=== PATIENT | female | born 1990 | race African-American/Black ===

== ENCOUNTER → 2017-12-16 | Outpatient (CLI) | payer OTHER | LOC: CPRE 12:04 | PROVIDERS: ATTEND Obstetrics & Gynecology | DX: Z01.818 Encounter for other preprocedural examination (principal) ==

== ENCOUNTER → 2017-12-25 | Day surgery (SDC) | payer OTHER ==
[~2017-12-25] VITALS: Ht 170.2 cm; Wt 59.7 kg
[~2017-12-25] MED LIST: *MEPERIDINE 25 MG INJ VIAL PERIprocedural Use ONLY ONE; *morphine SULFATE 8 MG/ML PERIprocedure ONLY ONE; ACETAMINOPHEN 1000 MG/100 ML 100 ML IV ONE; CHLORHEXIDINE GLUCONATE 2 % 1 PACK (2 CLOTHS) TOPICAL PRN; DEXAMETHASONE SOD PHOS 4 MG/ML VIAL IV ONE; DO NOT ADM ANY ANTICOAGULANT DRUGS PRN; GLYCOPYRROLATE 1 MG/5 ML SYRINGE IV PUSH ONE; LACTATED RINGER'S 1000 ML IV PRN; LIDOCAINE HCL 1% PF 5 ML SYRINGE OTHER ONE; METOPROLOL TARTRATE 25 MG TAB PO PRN; MIDAZOLAM HCL 2 MG/2 ML VIAL ONE; NEOSTIGMINE 5 MG/5 ML SYRINGE IV PUSH ONE; ONDANSETRON HCL 4 MG/2 ML VIAL IV ONE; ONDANSETRON HCL 4 MG/2 ML VIAL IV PUSH PRN; POVIDONE IODINE 5% (ANTISEPSIS KIT) 4 APPLICATIONS EACH NARE PRN; PROPOFOL 200 MG/20 ML AMP IV ONE; ROCURONIUM INJ 50 MG/5 ML SYRINGE IV PUSH ONE; SODIUM CHLORID 0.9% 500 ML IV PRN; ceFAZolin INJ 1,000 MG VIAL IV ONE; oxyCODONE/ACETAMINOPHEN 5 MG/325 MG TAB PO PRN
[2017-12-25 06:48] LABS: AUTOMATED NEUTROPHIL # 0.9 TH/MM3 (1.8-7.7); BASOPHIL % 1.1 % (0.0-2.0); EOSINOPHIL # 0.1 TH/MM3 (0-0.4); EOSINOPHIL % 2.1 % (0.0-4.0); HEMATOCRIT 30.3 % (35.0-46.0); HEMOGLOBIN 9.9 GM/DL (11.6-15.3); LYMPH % 51.7 % (9.0-44.0); LYMPHOCYTE # 1.4 TH/MM3 (1.0-4.8); MEAN CELL VOLUME 85.6 FL (80.0-100.0); MEAN CORPUSCULAR HGB CONC 32.7 % (32.0-36.0); MONO % 11.3 % (0.0-8.0); MONOCYTE # 0.3 TH/MM3 (0-0.9); NEUT % 33.8 % (16.0-70.0); PLATELET COUNT 343 TH/MM3 (150-450); RED BLOOD COUNT 3.54 MIL/MM3 (4.00-5.30); RED CELL DISTRIBUTION WIDTH 15.4 % (11.6-17.2); WHITE BLOOD COUNT 2.8 TH/MM3 (4.0-11.0)
[2017-12-25 08:05] LABS: BASOPHILS 3 % (0-2); LYMPHOCYTES 53 % (9-44); MONOCYTES 7 % (0-8); POLYS (SEG NEUTROPHILS) 36 % (16-70)
[2017-12-25 08:06] LABS: OVALOCYTES 1+ (NORMAL)
--- NOTE | 2017-12-25 10:25 | MP ---
cc: Aquiles Love MD DATE OF OPERATION: 12/25/2017 PREOPERATIVE DIAGNOSES: 1. Severe dysmenorrhea. 2. Menorrhagia. POSTOPERATIVE DIAGNOSES: 1. Severe dysmenorrhea. 2. Menorrhagia. 3. Massive pelvic adhesions. PROCEDURES PERFORMED: Examination under anesthesia, hysteroscopic exam, dilation and curettage of the uterus, laparoscopic exam with extensive lysis of adhesions and placement of Interceed. ANESTHESIA: General endotracheal. INDICATIONS: Intubation. SURGEON: Aquiles Love MD FINDINGS: Examination under anesthesia, the vagina was clean, the cervix was small and nulliparous without lesions. The uterus was not enlarged, but felt slightly immobile. The adnexa was negative for masses. The hysteroscope revealed a normal uterine cavity sounded to 7.5 cm. No polyps or submucous myomas were seen. D and C revealed minimal tissue. The laparoscopic exam revealed a normal uterus, normal tubes, normal ovaries. The uterus was completely obliterated by scar tissue with the endometrium and the anterior abdominal wall. There were multiple huge thick adhesions on the anterior cul-de-sac and somewhat less in the posterior cul-de-sac. In the future if she ever needs to remove the uterus, I would consider strongly a bowel prep as the posterior cul-de-sac was completely obliterated around the cervix. The tubes, however, were normal in length and caliber and the ovaries looked perfectly normal. The bowels looked normal. COMPLICATIONS: None. COUNTS: Correct. ESTIMATED BLOOD LOSS: 50 mL. FLUIDS: Crystalloids. DISPOSITION: The patient tolerated the procedure well, went to the recovery room in good condition. PROCEDURE NOTE: The patient was taken to the operating room, identified by name band and verbally, given a general anesthetic, prepped and draped in the usual sterile manner for laparoscopic surgery. A timeout was taken and we proceeded with the examination under anesthesia after the Everett catheter was inserted. The examination under anesthesia was carried out with the above findings. Then a weighted speculum was placed in the vagina. The anterior lip of the cervix was grasped with a single-tooth tenaculum. The cervix was serially dilated without difficulty. It was hard to get in that first with a little cervical stenosis perhaps, but once we had opened that up, it went fairly easily. The hysteroscope was inserted and the entire endometrial cavity and endocervical canal was closely inspected with the above findings. At this point, we took a #1 sharp curette and gently curetted the entire endometrial surface and sent it for pathologic evaluation. The Hulka clamp was then placed and attention was turned to the umbilical area. A small subumbilical incision was made and a 5 mm trocar was inserted with some difficulty because her fascia was very tough. This took a little time to do it safely. At this point, then we created pneumoperitoneum with 3 liters of CO2 and visualized the entire pelvis with the above findings. A second puncture was placed in the left side inferolateral to the umbilicus and will began taking down the adhesions. A third incision was made on the right lower quadrant and a third 5 mm trocar was placed for manipulation of tissue and placement of Interceed. We did extensive lysis of adhesions trying to avoid the urinary bladder and the ureter. These adhesions were so thick and could have been causing a lot of her pain. Once we had taken down all these adhesions anteriorly and one posteriorly, we took most of those down. The posterior cul-de-sac down by the cervix; however, was completely obliterated and the bowel was firmly adherent there, so we did not dissect in that area. The tubes were normal in length and caliber at this time. The ovaries looked normal. At this point, we decided to place some Interceed and Interceed was placed in the anterior cul-de-sac and laid down and the placement looked excellent. We left the air release after the laparoscope was removed under direct vision and the skin was repaired with 4-0 Monocryl in subcuticular fashion. I will be sending her home on some doxycycline in case this does represent a tubal infection that was never treated. R. MD TOM Galan/ROLANDA , 09:53 AM , 10:24 AM
[2017-12-25 11:24] VITALS: BP 106/72; PULSE 58; RESP 20; TEMP 98; O2SAT 100
== END | disposition home or self-care (01) ==
LOC: HSDC 05:47
PROVIDERS: ATTEND Obstetrics & Gynecology
DX: N73.6 Female pelvic peritoneal adhesions (postinfective) (principal); N94.6 Dysmenorrhea, unspecified; N92.0 Excessive and frequent menstruation with regular cycle; N71.1 Chronic inflammatory disease of uterus
CPT/HCPCS: 00840; 58558; 58660; 84703; 85007; 85027; 88305; C1765; J0131; J0690; J1100; J2175; J2250; J2270; J2405; J2710; J3010; J7120

== ENCOUNTER 2018-01-21 18:36 | Observation (INO) ==
[2018-01-21] MEDS ORDERED: Sod Chloride 0.9% Inj 1,000 ML IV.SIG ONE ×2 (19:44→22:00)
--- NOTE | 2018-01-21 20:15 | CT ---
EXAM DATE: 01/21/2018 7:55 PM EDT AGE/SEX: 27 years / Female INDICATIONS: Altered mental status. CLINICAL DATA: This is the patient's initial encounter. Patient reports that signs and symptoms have been present for 1 day and indicates a pain score of 0/10. MEDICAL/SURGICAL HISTORY: None. None. RADIATION DOSE: 56.35 CTDI (mGy) COMPARISON: No prior exams available for comparison. TECHNIQUE: CT of the head without contrast. Using automated exposure control and adjustment of the mA and/or kV according to patient size, radiation dose was kept as low as reasonably achievable to ob tain optimal diagnostic quality images. DICOM format image data is available electronically for revi ew and comparison. FINDINGS: Cerebrum: The ventricles are normal for age. No evidence of midline shift, mass lesion, hemorrhage or acute infarction. No extraaxial fluid collections are seen. Posterior Fossa: The cerebellum and brainstem are intact. The 4th ventricle is midline. The cerebe llopontine angle is unremarkable. Extracranial: The visualized portion of the orbits is intact. Skull: The calvaria is intact. No evidence of skull fracture. CONCLUSION: 1. No acute intracranial abnormality demonstrated. Electronically signed by: Braulio Cartagena MD 01/21/2018 8:14 PM EDT
--- NOTE | 2018-01-21 20:17 | ED ---
HPI General Chief complaint: Head Injury Stated complaint: head injury Time Seen by Provider: 01/21/18 19:31 Source: patient and family Mode of arrival: wheelchair Limitations: altered mental status History of Present Illness HPI narrative: 27-year-old female that presents to the ED for evaluation of head injury and possible confusion and weakness. Per patient today she has been feeling weak and confused. Per family apparently she allegedly had a syncopal episode at a store. She does not remember what happened. Per patient she has a history of syncopal episode secondary to her periods for which is being followed by Dr. Montes. Apparently she had a D&C about a month ago and they thought that she was doing better but her first period since the procedure started on Saturday and she is been having issues since. Per patient she has been having bad abdominal cramping from it. She states that her bleeding has not been as bad as before but today she has been feeling weak and tired. She also reports that she has not eaten anything today. Per patient she is taking some Gummies to help her with her "diarrhea" and this is only thing she has had for food. Unclear as to why she has not eaten anything. She denies any chest pain or shortness of breath. Family is very concerned as patient has been acting very confused and different from her usual. She usually is weak when her she has these episodes and has episodes of blackouts but not usually with confusion. She states that she has been anemic and she is needing transfusions in the past and she believes that this might be related. She does tell me that today she took Tylenol with codeine after taking her Gummies and unclear if the symptoms of confusion started after this. She apparently did have a significant fall on Saturday per family and the patient showed us a picture of blood in the tile where she allegedly fell and hit her head. This is news to the family and per patient she never got checked for this. She states that since this happened she has been having pain on a spot on her head. Related Data Home Medications Medication Instructions Recorded Confirmed No Known Home Medications 01/21/18 01/21/18 Allergies Allergy/AdvReac Type Severity Reaction Status Date / Time lactose Allergy Severe VOMITING Verified 12/25/17 06:42 No Known Drug Allergies Allergy Unknown Verified 12/25/17 06:42 Review of Systems ROS Unobtainable All other systems reviewed negative except as stated in HPI [facility] Medical History Medical History Anemia (Acute) Surgical History Surgical History History of dilatation and curettage (Acute) Social History Social History Substance History: No History of Abuse Second Hand Smoke Exposure: No Smoking Status: Never smoker How Often Do You Have a Drink Containing Alcohol: Monthly or less Recent Travel in [facility] within the Last 8 Weeks: No Recent Out of Country Travel within the Last 8 Weeks: No Immunization History Tetanus Immunization: <5 Years Hx Influenza Vaccine This Season: Yes Exam Narrative Exam Narrative: GENERAL: Well-appearing SKIN: Focused skin assessment warm/dry. HEAD: Atraumatic. Normocephalic. EYES: Pupils equal and round 4 mms reactive to light and accommodation. No scleral icterus. No injection or drainage. ENT: No nasal bleeding or discharge. Mucous membranes pink and moist. Tongue is midline. No uvula deviation. NECK: Trachea midline. No JVD. CARDIOVASCULAR: Regular rate and rhythm. No murmur appreciated. RESPIRATORY: No accessory muscle use. Clear to auscultation. Breath sounds equal bilaterally. GASTROINTESTINAL: Abdomen soft, non-tender, nondistended. Hepatic and splenic margins not palpable. MUSCULOSKELETAL: No obvious deformities. No clubbing. No cyanosis. No edema. Full range of motion of the upper and lower extremities bilately. 2+ pulses bilaterally. NEUROLOGICAL: Awake and alert. No obvious cranial nerve deficits. Motor grossly within normal limits. Normal speech. PSYCHIATRIC: Appropriate mood and affect; insight and judgment normal. External Female Exam: external appearance normal Speculum Exam - Vagina: normal appearance of the vagina and vaginal bleeding ( Cultures including GC and chlamydia and a wet prep were done. There was a mild amount of bleeding noted.) Speculum Exam - Cervix: normal appearance of the cervix, closed cervix and nontender Bimanual Exam- Vagina & Uterus: normal bimanual exam Bimanual Exam- Adnexa, other: no adnexal masses Course Initial Documented Vital Signs Temperature 100.4 F H 01/21/18 18:43 Pulse Rate 113 H 01/21/18 18:43 Respiratory Rate 18 01/21/18 18:43 Blood Pressure 105/70 01/21/18 18:43 Pulse Oximetry 98 01/21/18 18:43 Last Documented Vital Signs Temperature 100.4 F H 01/21/18 18:43 Pulse Rate 87 01/21/18 18:59 Respiratory Rate 18 01/21/18 18:59 Blood Pressure 109/74 01/21/18 18:59 Pulse Oximetry 100 01/21/18 18:59 Medical Decision Making ALISA Attestation ALISA supervised visit: Yes Attestation: I, Dr. Cardenas, have reviewed the advance practice practitioner's documentation and am in agreement, met with the patient face to face, made the diagnosis, and the medical decision making was done by me. The patient was initially evaluated by . Please see their complete history and physical. *My assessment and Findings: The patient presents with During the course of the patient's emergency department visit, the patient's history, examination, and differential diagnosis were reviewed with the patient. The patient was placed on a ship harbor pilot with oximetry and frequent blood pressure monitoring. The patient had IV access obtained and blood work sent for analysis. The patient was initially provided normal saline as an IV fluid bolus. The patient's laboratory studies were reviewed and remarkable for a white count of 4.7, hemoglobin is 9.8 which is similar to her last hemoglobin, monocytosis of 9.3, platelets are 332, PT 10.8, PTT 22.2, CMP is remarkable for glucose of 107, potassium 3.2 which will be supplemented in her IV fluids by the admitting physician, chloride 108, BUN 4, AST is 65, ALT 41, bedside test was negative, troponin I less than 0.02, lactic acid was elevated at 3.4 and will be repeated per sepsis protocol. Due to the concern of a possible underlying abdominal infection and sepsis, Zosyn 3.375 g was administered IV, blood cultures x2 were drawn. Urinalysis showed 127 are all blood few mucus which is likely contaminant related to her vaginal bleeding. Radiology studies were reviewed and remarkable for A CT scan of the brain showed no acute abnormality, CT scan of the abdomen and pelvis showed nonspecific heterogeneity and mild enlargement of the uterus, no well-defined mass, no active bleeding seen, small follicles of the right ovary, trace free fluid, nothing organized or drainable, pneumothorax is partially seen in the visualized right lung base, etiology is uncertain. The patient was again reexamined after the pneumothorax was noted and the patient has equal breath sounds bilaterally. The patient's O2 saturation on room air is 98-99%. The patient denies having any chest pain, chest pressure, or shortness of breath currently. A CT scan of the chest was ordered to further evaluate. CT scan of the chest reveals a small right-sided pneumothorax that measures at maximum 1 cm at the apex, no associated displaced rib fractures or definite etiology identified. At this time, the patient has no respiratory complaints and the patient will be observed on the monitor, placed on 2 L nasal cannula O2. A repeat chest x-ray will be done in the morning to reassess any need for chest tube placement, however it does not appear to be necessary at this time. A pelvic examination was done by me that that showed a mild amount of vaginal bleeding. No other discharge, however cultures were collected. No cervical motion tenderness. The patient's case including history, pertinent physical examination findings, and laboratory studies were discussed with Dr. Iverson. It was agreed that the patient would be admitted to the [facility] hospitalist service. The patient's results were discussed with the patient, including the plan of care. I explained that further testing and/ or monitoring is indicated based on the patient's history, examination, and/ or laboratory findings. Therefore, I recommended admission for additional evaluation. The patient expressed understanding and was agreeable with this plan. The patient was admitted to the hospital in stable condition and sent to a bed under the care of the [facility] hospitalist. [facility] Narrative Medical decision making narrative: 19-year-old female that presents to the ED for evaluation of syncope and confusion. Patient was properly examined and was found to have signs and symptoms of unclear etiology. She does appear to be dry on exam and somewhat confused. She was trying to show me the picture of some blood on the tile from where she allegedly fell on Saturday and she had a lot of difficulty keeping her phone on her hand and needed to use both hands to keep her follow her hand. Per family she is more confused but she does answer questions appropriately. She does allegedly has a history of anemia as well as syncope-like events. At this time labs and imaging were ordered. Patient will start IV fluids. Labs and imaging showed elevated lactic acid as well as moderate to small pneumothorax. Patient did not complain at all of SOB. CT scan ordered due to possibility of traumatic etiology. Will sign out patient to my attending pending dispo and plan pending CT scan. Differential Diagnosis Differential Diagnosis: Syncope versus altered mental status versus sepsis versus ACS versus dehydration versus anemia Medical Records Medical records reviewed: Yes I reviewed the patient's medical records. Lab Data Lab results reviewed: Yes I reviewed the patient's lab results. Lab results narrative: lactic acid in the 3s troponin and CKMB negative Result diagrams: 01/21/18 20:51 01/21/18 20:51 Lab Results 01/21/18 01/21/18 01/21/18 Range/Units 20:48 20:51 20:51 WBC 4.7 (4.0-11.0) th/mm3 RBC 3.67 L (4.00-5.30) mil/mm3 Hgb 9.8 L (11.6-15.3) gm/dL Hct 31.1 L (35.0-46.0) % MCV 84.8 (80.0-100.0) fL MCH 26.7 L (27.0-34.0) pg MCHC 31.5 L (32.0-36.0) % RDW 15.4 (11.6-17.2) % Plt Count 332 (150-450) th/mm3 MPV 7.7 (7.0-11.0) fL Neut % (Auto) 57.5 (16.0-70.0) % Lymph % (Auto) 32.3 (9.0-44.0) % [place] % (Auto) 9.3 H (0.0-8.0) % Eos % (Auto) 0.3 (0.0-4.0) % Baso % (Auto) 0.6 (0.0-2.0) % Neut # (Auto) 2.7 (1.8-7.7) th/mm3 Lymph # (Auto) 1.5 (1.0-4.8) th/mm3 [place] # (Auto) 0.4 (0.0-0.9) th/mm3 Eos # (Auto) 0.0 (0.0-0.4) th/mm3 Baso # (Auto) 0.0 (0.0-0.2) th/mm3 WBC Differential . Differential Comment Auto diff final PT 10.8 (9.8-11.6) sec INR 1.1 Ratio APTT 22.2 L (24.3-30.1) sec Sodium (136-145) meq/L Potassium (3.5-5.1) meq/L Chloride (98-107) meq/L Carbon Dioxide (21.0-32.0) meq/L Anion Gap (5-15) meq/L BUN (7-18) mg/dL Creatinine (0.50-1.00) mg/dL Estimated GFR (>89) mL/min Random Glucose (74-106) mg/dL Lactic Acid 3.6 H (0.4-2.0) mmol/L Calcium (8.5-10.1) mg/dL Total Bilirubin (0.2-1.0) mg/dL AST (15-37) U/L ALT (10-53) U/L Alkaline Phosphatase (45-117) U/L Total Creatine Kinase (26-192) U/L Troponin I (0.02-0.05) ng/mL Total Protein (6.4-8.2) g/dL Albumin (3.4-5.0) g/dL Urine Color (Yellw/Straw) Urine Clarity (Clear) Urine pH (5.0-8.5) Ur Specific [place] (1.002-1.035) Urine Protein (Neg-Trace) mg/dL Urine Glucose (UA) (Negative) mg/dL Urine Ketones (Negative) mg/dL Urine Occult Blood (Negative) Urine Nitrate (Negative) Urine Bilirubin (Negative) Urine Urobilinogen (Less than 2) mg/dL Ur Leukocyte Esterase (Negative) Urine RBC (0-3) /hpf Urine WBC (0-5) /hpf Ur Squamous Epith Cells (0-5) /hpf Urine Mucus (Occasional) /lpf Micro UA Comment Urine Culture Comments 01/21/18 01/21/18 01/21/18 Range/Units 20:51 20:52 23:48 WBC (4.0-11.0) th/mm3 RBC (4.00-5.30) mil/mm3 Hgb (11.6-15.3) gm/dL Hct (35.0-46.0) % MCV (80.0-100.0) fL MCH (27.0-34.0) pg MCHC (32.0-36.0) % RDW (11.6-17.2) % Plt Count (150-450) th/mm3 MPV (7.0-11.0) fL Neut % (Auto) (16.0-70.0) % Lymph % (Auto) (9.0-44.0) % [place] % (Auto) (0.0-8.0) % Eos % (Auto) (0.0-4.0) % Baso % (Auto) (0.0-2.0) % Neut # (Auto) (1.8-7.7) th/mm3 Lymph # (Auto) (1.0-4.8) th/mm3 [place] # (Auto) (0.0-0.9) th/mm3 Eos # (Auto) (0.0-0.4) th/mm3 Baso # (Auto) (0.0-0.2) th/mm3 WBC Differential Differential Comment PT (9.8-11.6) sec INR Ratio APTT (24.3-30.1) sec Sodium 143 (136-145) meq/L Potassium 3.2 L (3.5-5.1) meq/L Chloride 108 H (98-107) meq/L Carbon Dioxide 22.1 (21.0-32.0) meq/L Anion Gap 13 (5-15) meq/L BUN 4 L (7-18) mg/dL Creatinine 0.73 (0.50-1.00) mg/dL Estimated GFR Greater than 89 (>89) mL/min Random Glucose 107 H (74-106) mg/dL Lactic Acid 3.4 H (0.4-2.0) mmol/L Calcium 8.9 (8.5-10.1) mg/dL Total Bilirubin 0.3 (0.2-1.0) mg/dL AST 65 H (15-37) U/L ALT 41 (10-53) U/L Alkaline Phosphatase 60 (45-117) U/L Total Creatine Kinase 85 (26-192) U/L Troponin I Less than 0.02 L (0.02-0.05) ng/mL Total Protein 7.2 (6.4-8.2) g/dL Albumin 3.7 (3.4-5.0) g/dL Urine Color Straw (Yellw/Straw) Urine Clarity Clear (Clear) Urine pH 6.0 (5.0-8.5) Ur Specific [place] 1.006 (1.002-1.035) Urine Protein Negative (Neg-Trace) mg/dL Urine Glucose (UA) Negative (Negative) mg/dL Urine Ketones Negative (Negative) mg/dL Urine Occult Blood Large H (Negative) Urine Nitrate Negative (Negative) Urine Bilirubin Negative (Negative) Urine Urobilinogen Less than 2 (Less than 2) mg/dL Ur Leukocyte Esterase Negative (Negative) Urine RBC 127 H (0-3) /hpf Urine WBC 2 (0-5) /hpf Ur Squamous Epith Cells 1 (0-5) /hpf Urine Mucus Few H (Occasional) /lpf Micro UA Comment Culture not ind Urine Culture Comments Culture not ind Imaging Data Attestation: I personally reviewed and interpreted this imaging study as follows : Radiologist's impression: ITS Impressions Head CT 01/21/18 19:42 CONCLUSION: 1. No acute intracranial abnormality demonstrated. Abdomen/Pelvis CT 01/21/18 22:00 CONCLUSION: 1. Nonspecific heterogeneity and mild enlargement of the uterus. No well- defined mass. No active bleeding seen. 2. Small follicles of the right ovary. 3. Trace free fluid. Nothing organized or drainable seen. 4. A pneumothorax is partially seen in the visualized right lung base. Etiology is uncertain. Chest CT 01/21/18 22:43 CONCLUSION: 1. Small right-sided pneumothorax measuring up to 1 cm at the apex. 2. No associated displaced rib fractures or definite etiology identified. Discharge Plan Discharge Disposition Patient Disposition: 30 Still Patient Discharge Details Diagnosis: Dysmenorrhea, Abdominal pain, Dehydration, Pneumothorax Physicians Team ED Provider: Aiyana Cardenas ED Midlevel Provider: José Miguel Paulson Primary Care Provider: Vince Sanches Attending Provider: Landry Jeffers Discharge Interventions Interventions: Vital Signs Last Done: 01/21/18 18:59 Status ED Status: Admitted Observation Patient
[2018-01-21] MEDS ORDERED: Acetaminophen 325 MG Tablet PO ONE (21:15)
[2018-01-21 21:28] LABS: Baso % (Auto) 0.6 % (0.0-2.0); Eos % (Auto) 0.3 % (0.0-4.0); Hematocrit 31.1 % (35.0-46.0); Hemoglobin 9.8 gm/dL (11.6-15.3); Lymph # (Auto) 1.5 th/mm3 (1.0-4.8); Lymph % (Auto) 32.3 % (9.0-44.0); Mean Corpuscular HGB Conc 31.5 % (32.0-36.0); Mean Corpuscular Hemoglobin 26.7 pg (27.0-34.0); Mean Corpuscular Volume 84.8 fL (80.0-100.0); Mean Platelet Volume 7.7 fL (7.0-11.0); Mono # (Auto) 0.4 th/mm3 (0.0-0.9); Mono % (Auto) 9.3 % (0.0-8.0); Neut # (Auto) 2.7 th/mm3 (1.8-7.7); Neut % (Auto) 57.5 % (16.0-70.0); Platelet Count 332 th/mm3 (150-450); Red Blood Count 3.67 mil/mm3 (4.00-5.30); Red Cell Distribution Width 15.4 % (11.6-17.2); White Blood Count 4.7 th/mm3 (4.0-11.0)
[2018-01-21 21:33] LABS: Activated Partial Thrombo Time 22.2 sec (24.3-30.1); INR 1.1 Ratio; Prothrombin Time 10.8 sec (9.8-11.6)
[2018-01-21 21:40] LABS: Bilirubin,Urine Negative (Negative); Clarity,Urine Clear (Clear); Color,Urine Straw (Yellw/Straw); Glucose,Urine (UA) Negative (Negative); Leukocyte Esterase,Urine Negative (Negative); Mucus,Urine Few /lpf (Occasional); Nitrite,Urine Negative (Negative); Specific Gravity,Urine 1.006 (1.002-1.035); Squamous Epithelial Cell,Urine 1 /hpf (0-5)
[2018-01-21 21:43] LABS: Albumin 3.7 g/dL (3.4-5.0); Anion Gap 13 meq/L (5-15); Aspartate Aminotransferase 65 U/L (15-37); Blood Urea Nitrogen 4 mg/dL (7-18); Calcium 8.9 mg/dL (8.5-10.1); Carbon Dioxide 22.1 meq/L (21.0-32.0); Chloride 108 meq/L (98-107); Glomerular Filtration Rate Greater Than 89 mL/min (>89); Glucose,Random 107 mg/dL (74-106); Potassium 3.2 meq/L (3.5-5.1); Sodium 143 meq/L (136-145)
[2018-01-21 21:45] LABS: Alanine Aminotransferase 41 U/L (10-53); Alkaline Phosphatase 60 U/L (45-117); Total Protein 7.2 g/dL (6.4-8.2)
[2018-01-21 21:50] LABS: Creatine Kinase 85 U/L (26-192)
--- NOTE | 2018-01-21 22:34 | CT ---
EXAM DATE: 01/21/2018 10:23 PM EDT AGE/SEX: 27 years / Female INDICATIONS: Low Abdomen pain post D&C. CLINICAL DATA: This is the patient's initial encounter. Patient reports that signs and symptoms have been present for 1 day and indicates a pain score of 5/10. MEDICAL/SURGICAL HISTORY: None. None. ORAL CONTRAST: No oral contrast ingested. RADIATION DOSE: 5.25 CTDI (mGy) COMPARISON: No prior exams available for comparison. TECHNIQUE: Multiple contiguous axial images were obtained through the abdomen and pelvis following b olus infusion of 95 ml Omnipaque 350 (iohexol) nonionic water-soluble contrast as a single exam dos e. No oral contrast ingested. Using automated exposure control and adjustment of the mA and/or kV ac cording to patient size, radiation dose was kept as low as reasonably achievable to obtain optimal di agnostic quality images. DICOM format image data is available electronically for review and comparis on. FINDINGS: Lower Lungs: There is a small to moderate pneumothorax seen of the visualized right lung base. Liver: The liver has a homogeneous density without space-occupying lesion. There is no dilation of th e biliary tree. Spleen: Homogeneous density without enlargement. Pancreas: Unremarkable without mass or calcification. Kidneys: Normal in size and shape. No evidence of mass or hydronephrosis. Adrenal Glands: Unremarkable. Aorta: The aorta and proximal iliac vessels are grossly unremarkable without aneurysmal dilation. Bowel/Mesentery: The bowel loops are grossly unremarkable. The cecum and sigmoid colon have a normal configuration. Abdominal Wall: Intact. Retroperitoneum: No evidence of adenopathy in the retrocrural, para-aortic, or deep pelvic regions. Bladder: Contours are smooth. Reproductive Organs: Enlarged and heterogeneous uterus. No well-defined mass. No active bleeding see n. A collection of very small cysts/follicles suspected of the right ovary. Trace free fluid in the p elvic cavity. Nothing organized or drainable. Inguinal: The inguinal region is unremarkable without evidence of adenopathy. Bony Structures: Unremarkable. Post Contrast: No abnormal areas of enhancement seen. CONCLUSION: 1. Nonspecific heterogeneity and mild enlargement of the uterus. No well-defined mass. No active ble eding seen. 2. Small follicles of the right ovary. 3. Trace free fluid. Nothing organized or drainable seen. 4. A pneumothorax is partially seen in the visualized right lung base. Etiology is uncertain. Electronically signed by: Braulio Cartagena MD 01/21/2018 10:33 PM EDT
--- NOTE | 2018-01-21 23:37 | CT ---
EXAM DATE: 01/21/2018 11:04 PM EDT AGE/SEX: 27 years / Female INDICATIONS: Trauma; fall today, abnormal abdomen ct. CLINICAL DATA: This is the patient's initial encounter. Patient reports that signs and symptoms have been present for 1 day and indicates a pain score of 4/10. MEDICAL/SURGICAL HISTORY: None. None. RADIATION DOSE: 3.49 CTDI (mGy) COMPARISON: No prior exams available for comparison. TECHNIQUE: Multiple contiguous axial images were obtained through the chest without contrast. Image s were obtained in suspended respiration using multiple row detector helical technique. Using automa yadira exposure control and adjustment of the mA and/or kV according to patient size, radiation dose was kept as low as reasonably achievable to obtain optimal diagnostic quality images. DICOM format imag e data is available electronically for review and comparison. FINDINGS: Lung: Subtle focal groundglass opacities in the anterior right upper lobe. Pleura: There is a small right-sided pneumothorax measuring up to 1 cm at the apex. No evidence for mediastinal shift. No pleural effusion. Mediastinum: Heart is grossly unremarkable without significant pericardial effusion. No gross be slade tral adenopathy. Osseous Structures: Osseous structures appear intact without acute fracture. Specifically, no signifi cant right-sided rib fractures. Soft Tissues: Soft tissues are unremarkable. No significant axillary adenopathy. Other: Visulaized upper abdomen is unremarkable. CONCLUSION: 1. Small right-sided pneumothorax measuring up to 1 cm at the apex. 2. No associated displaced rib fractures or definite etiology identified. Electronically signed by: Pratik Reynoso MD 01/21/2018 11:35 PM EDT
[2018-01-22] MEDS ORDERED: Piperacil/Tazo 3.375 GM Premix 50 ML IV.SIG ONE (00:14)
--- NOTE | 2018-01-22 05:36 | ECG ---
Date Performed: 01/21/2018 Time Performed: 20:28:41 PTAGE: 27 years EKG: Sinus rhythm NORMAL ECG NO PREVIOUS TRACING DOCTOR: Regis Kolb Interpretating Date/Time 01/22/2018 05:35:46
[2018-01-22 07:27] LABS: Baso % (Auto) 0.6 % (0.0-2.0); Eos # (Auto) 0.1 th/mm3 (0.0-0.4); Eos % (Auto) 1.8 % (0.0-4.0); Hematocrit 26.7 % (35.0-46.0); Hemoglobin 8.7 gm/dL (11.6-15.3); Lymph # (Auto) 2.3 th/mm3 (1.0-4.8); Mean Corpuscular HGB Conc 32.6 % (32.0-36.0); Mean Corpuscular Hemoglobin 27.5 pg (27.0-34.0); Mean Corpuscular Volume 84.5 fL (80.0-100.0); Mean Platelet Volume 7.3 fL (7.0-11.0); Mono # (Auto) 0.4 th/mm3 (0.0-0.9); Neut # (Auto) 1.6 th/mm3 (1.8-7.7); Neut % (Auto) 36.6 % (16.0-70.0); Platelet Count 269 th/mm3 (150-450); Red Blood Count 3.15 mil/mm3 (4.00-5.30); Red Cell Distribution Width 14.9 % (11.6-17.2); White Blood Count 4.4 th/mm3 (4.0-11.0)
[2018-01-22 07:53] LABS: Anion Gap 6 meq/L (5-15); Blood Urea Nitrogen 2 mg/dL (7-18); Calcium 7.8 mg/dL (8.5-10.1); Carbon Dioxide 26.9 meq/L (21.0-32.0); Chloride 111 meq/L (98-107); Glomerular Filtration Rate Greater Than 89 mL/min (>89); Glucose,Random 90 mg/dL (74-106); Potassium 3.5 meq/L (3.5-5.1); Sodium 144 meq/L (136-145)
--- NOTE | 2018-01-22 10:21 | P.HPIM ---
History of Present Illness Primary Care Physician: Vince Sanches Chief Complaint: Syncope, AMS History of Present Illness: Ms. Dunham is a 27 y/o AAF with anemia, dysmenorrhea, and hx of syncopal episodes who presented to the ED at [facility] [facility] on 01/21/18 evaluation of presyncope, confusion and weakness. Per the patient and her mother at the bedside, the pt has had issues with syncopal episodes intermittently for several years. She has had outpt workup with Cardiology and Neurology in the past without a clear answer for the syncopal episodes. Over the last several months she has had some issues with memory problems and has recently been evaluated by Neurology, Dr. Idalia Gruber, as an outpt. She has recently had Holter monitor (09/20/17) with underlying NSR, no ventricular ectopy, supraventricular or bradycardic activity, EEG (09/17/17) which was normal, no focal, diffuse or general abnormalities noted, Carotid US (09/10/17) which noted normal bilateral carotid arteries, and MRI Brain w/o contrast (09/09/17) which was unremarkable. Several years ago she had outpt workup with Echo (2014) normal EF, trace MR/TR and TTT ( 2014) which was negative. Per the patient she has a history of syncopal episode secondary to her periods for which is being followed by Dr. Montes and per PCP has documented episodes of presumed vasovagal syncope in the past. She had a laparoscopy and D&C on 12/25/17 and the patient thought that she was doing better but her first period since the procedure started on 01/18/18, and she is been having issues since that time. On 01/19/18, the pt reported a syncopal episode that began with feeling nauseated and she went to the bathroom and while sitting on the commode she passed out and reportedly hit her forehead on the bathroom counter when she fell. There was no reported loss of bowel or bladder function when she woke up. She was not particularly confused or disoriented after this episode. She states that this is not unusual to occur while she is on her period. Pt was brought to the ED on 01/21 with reported increased confusion, disequilibrium and she had a reported weakness and near syncope in a store earlier that day. Pt reports that she went to the grocery store yesterday morning and after walking in she felt somewhat dizzy and felt like she may pass out. She was using the cart to help hold her up but then she fell backwards onto her buttock, never hitting her head. She was able to recover and finished her shopping yesterday. After returning home her mother felt that the pt was increasingly confused and seemed to have a difficult time ambulating around in the house. Around 5pm yesterday evening the pt was reportedly slurring her words and this prompted her evaluation in the ED. Her labs at admission noted Hgb 9.8/Hct 31.1. She states that she has been anemic for some time and in the past but she has not required transfusions. She does tell me that yesterday she took Tylenol with codeine after taking her fiber gummies and unclear if the symptoms of confusion started after this. Head CT (01/21/18) with no acute intracranial abnormality demonstrated. CT Abdomen/Pelvis (01/21/18) with noted nonspecific heterogeneity and mild enlargement of the uterus, no well-defined mass, no active bleeding seen, small follicles of the right ovary, and trace free fluid. The CT also noted a pneumothorax is partially seen in the visualized right lung base. Chest CT (01/21) which revealed a small right-sided pneumothorax measuring up to 1 cm at the apex, but no associated displaced rib fractures or definite etiology identified. She has had some intermittent SOB and chest pressure like sensation but she relates this to when she has her periods. review of her outpt labs notes her blood count to typically be between 11-9. Most recent outpt Hgb was 9.7 in 10/2017. She does not report that she has had her blood count checked during or right after her periods to see how low her blood count gets. - Diagnosis (1) Syncopal episodes (2) Confusion (3) Dysmenorrhea (4) Abdominal pain (5) Pneumothorax Review of Systems Constitutional: Reports headache(s), Reports weakness, Denies chills, Denies fatigue, Denies fever(s), Denies malaise, Denies night sweats Eyes: Denies blind spots, Denies blurry vision, Denies change in vision, Denies double vision, Denies floaters, Denies loss of vision Ears, Nose, Mouth, and Throat: Reports dizziness, Denies abnormal hearing, Denies difficulty swallowing, Denies hearing loss, Denies post nasal drip, Denies ringing in the ears, Denies sore throat Cardiovascular: Reports fainting, Reports lightheadedness, Denies chest pain, Denies chest pain at rest, Denies excessive sweating, Denies generalized swelling, Denies irregular heart rhythm, Denies leg pain with activity, Denies rapid, pounding, or irregular heartbeat, Denies shortness of breath Respiratory: Denies cough, Denies shortness of breath, Denies wheezing Gastrointestinal: Reports abdominal pain, Reports bloating, Reports nausea, Denies change in bowel habits, Denies change in stools, Denies coffee ground vomit, Denies constipation, Denies heartburn, Denies incontinent of stools, Denies loose stools, Denies vomiting, Denies vomiting blood Genitourinary: Reports abnormal periods, Reports abnormal vaginal bleeding, Denies urinary incontinence, Denies urinary urgency, Denies vaginal discharge Musculoskeletal: Reports abnormal walking, Denies muscle weakness, Denies numbness Skin/Breast: Denies excessive hair growth, Denies hair loss, Denies unusual bruising Neurologic: Reports abnormal speech, Reports abnormal walking, Reports confusion , Reports dizziness, Reports fainting, Reports memory loss, Reports unsteadiness , Denies localized weakness, Denies numbness, Denies weakness Psychiatric: Reports abnormal sleep pattern, Denies thoughts of hurting/killing others, Denies thoughts of hurting/killing yourself Endocrine: Denies heat intolerance, Denies rapid, pounding, or irregular heartbeat Hematologic/Lymphatic: Denies easy bleeding, Denies easy bruising PMFSH - History History Provided By: Patient - Medical History Medical History: Medical History (Last Updated 01/22/18 @ 10:18 by MENDEZ Knight) Syncopal episodes (Acute) Anemia - Surgical History Surgical History: Surgical History (Last Updated 01/22/18 @ 10:18 by MENDEZ Knight) History of dilatation and curettage History of laparoscopy - Family History Family History: Family History (Last Updated 01/22/18 @ 10:19 by MENDEZ Knight) Mother Syncopal episodes - Tobacco History Second Hand Smoke Exposure: No Tobacco Use In Past 30 Days: No Smoking Status: Never smoker - Alcohol History How Often Do You Have a Drink Containing Alcohol: Monthly or less - Substance Use History Substance History: No History of Abuse - Travel History Recent Travel in the [place] Within the Last 8 Weeks: No Recent Travel Out of the Country Within the Last 8 Weeks: No - Immunization History Tetanus Immunization: <5 Years Hx Influenza Vaccine This Season: Yes Medications and Allergies Allergies Allergy/AdvReac Type Severity Reaction Status Date / Time lactose Allergy Severe VOMITING Verified 12/25/17 06:42 No Known Drug Allergies Allergy Unknown Verified 12/25/17 06:42 Home Medications Medication Instructions Recorded Confirmed Type No Known Home Medications 01/21/18 01/21/18 History Active Medications: Active Medications Potassium Chloride/Sodium Chloride (Ns + Kcl 20 Meq Inj) 1,000 mls @ 84 mls/hr IV.CONT .[id number] [facility] Last Admin: 01/22/18 02:26 Dose: 84 mls/hr Sodium Chloride (Ns Flush) 2 ml IV.FLUSH PRN PRN PRN Reason: FLUSH AFTER USING IV ACCESS Sodium Chloride (Ns Flush) 2 ml IV.FLUSH PRN PRN PRN Reason: FLUSH AFTER USING IV ACCESS Tramadol HCl (Ultram) 50 mg PO Q6H PRN PRN Reason: Acute Pain Last Admin: 01/22/18 01:00 Dose: 50 mg Exam Vital signs: Vital Signs 01/21/18 18:43 01/21/18 18:59 01/22/18 03:26 Temperature 100.4 F H Pulse Rate 113 H 87 73 Respiratory Rate 18 18 18 Blood Pressure 105/70 109/74 105/58 L Pulse Oximetry 98 100 100 01/22/18 06:47 Temperature Pulse Rate 71 Respiratory Rate 18 Blood Pressure 101/56 L Pulse Oximetry 100 Intake & Output 01/21/18 01/22/18 01/22/18 18:59 06:59 18:59 Intake Total 2049 Balance 2049 Weight 58.967 kg Intake: IV 2049 Zosyn 3.375 GM Premix 50 ML @ 50 / 50 100 mls/hr IV.SIG ONCE ONE Rx#: [id number] NS Inj 1,000 ML @ Wide Open IV. 1999 SIG BOLUS ONE Rx#:[id number] Narrative: GENERAL: NAD, AAOx3 SKIN: Warm and dry. HEENT: Atraumatic. Normocephalic. Pupils equal and round. No scleral icterus. No injection or drainage. No nasal bleeding or discharge. Mucous membranes pink and moist. NECK: Trachea midline. No JVD. CARDIOVASCULAR: Regular rate and rhythm. RESPIRATORY: No accessory muscle use. Clear to auscultation. Breath sounds equal bilaterally. GASTROINTESTINAL: Abdomen soft, non-tender, nondistended. Hepatic and splenic margins not palpable. MUSCULOSKELETAL: Extremities without clubbing, cyanosis, or edema. No obvious deformities. NEUROLOGICAL: Awake and alert. No obvious cranial nerve deficits. Motor grossly within normal limits. Five out of 5 muscle strength in the arms and legs. Normal speech. PSYCHIATRIC: Appropriate mood and affect; insight and judgment normal. Results - Labs CBC & Chem 7: 01/23/18 13:10 01/23/18 13:10 Labs: Short CBC 01/21/18 01/22/18 Range/Units 20:51 07:09 WBC 4.7 4.4 (4.0-11.0) th/mm3 Hgb 9.8 L 8.7 L (11.6-15.3) gm/dL Hct 31.1 L 26.7 L (35.0-46.0) % Plt Count 332 269 (150-450) th/mm3 BMP 01/21/18 01/22/18 20:51 07:09 Sodium 143 144 Potassium 3.2 L 3.5 Chloride 108 H 111 H Carbon Dioxide 22.1 26.9 BUN 4 L 2 L Creatinine 0.73 0.61 Calcium 8.9 7.8 L D Cardiac Enzymes 01/21/18 Range/Units 20:51 Total Creatine Kinase 85 (26-192) U/L Troponin I Less than 0.02 L (0.02-0.05) ng/mL Liver Function 01/21/18 Range/Units 20:51 Total Bilirubin 0.3 (0.2-1.0) mg/dL AST 65 H (15-37) U/L ALT 41 (10-53) U/L Alkaline Phosphatase 60 (45-117) U/L Albumin 3.7 (3.4-5.0) g/dL Urine 01/21/18 Range/Units 20:52 Urine Color Straw (Yellw/Straw) Urine Clarity Clear (Clear) Urine pH 6.0 (5.0-8.5) Ur Specific [place] 1.006 (1.002-1.035) Urine Protein Negative (Neg-Trace) mg/dL Urine Glucose (UA) Negative (Negative) mg/dL - Imaging Impressions Head CT 01/21/18 19:42 CONCLUSION: 1. No acute intracranial abnormality demonstrated. Abdomen/Pelvis CT 01/21/18 22:00 CONCLUSION: 1. Nonspecific heterogeneity and mild enlargement of the uterus. No well- defined mass. No active bleeding seen. 2. Small follicles of the right ovary. 3. Trace free fluid. Nothing organized or drainable seen. 4. A pneumothorax is partially seen in the visualized right lung base. Etiology is uncertain. Chest CT 01/21/18 22:43 CONCLUSION: 1. Small right-sided pneumothorax measuring up to 1 cm at the apex. 2. No associated displaced rib fractures or definite etiology identified. Caprini VTE Risk Assessment Caprini VTE Risk Assessment: No/Low Risk (score <= 1) Caprini Risk Assessment Model: Point Value = 1 Point Value = 2 Point Value = 3 Point Value = 5 Age 41-60 Minor surgery BMI > 25 kg/m2 Swollen legs Varicose veins or History of unexplained or recurrent spontaneous Oral contraceptives or hormone replacement Sepsis (< 1 month) Serious lung disease, including pneumonia (< 1 month) Abnormal pulmonary function Acute myocardial infarction Congestive heart failure (< 1 month) History of inflammatory bowel disease Medical patient at bed rest Age 61-74 Arthroscopic surgery Major open surgery (> 45 min) Laparoscopic surgery (> 45 min) Malignancy Confined to bed (> 72 hours) Immobilizing plaster cast Central venous access Age >= 75 History of VTE Family history of VTE Factor V Leiden Prothrombin [id number] Lupus anticoagulant Anticardiolipin antibodies Elevated serum homocysteine Heparin-induced thrombocytopenia Other congenital or acquired thrombophilia Stroke (< 1 month) Elective arthroplasty Hip, pelvis, or leg fracture Acute spinal cord injury (< 1 month) Prophylaxis Regimen: Total Risk Factor Score Risk Level Prophylaxis Regimen 0-1 Low Early ambulation 2 Moderate Order ONE of the following: *Sequential Compression Device (SCD) *Heparin 5000 units SQ BID 3-4 Higher Order ONE of the following medications: *Heparin 5000 units SQ TID *Enoxaparin/Lovenox 40 mg SQ daily (WT < 150 kg, CrCl > 30 mL/min) *Enoxaparin/Lovenox 30 mg SQ daily (WT < 150 kg, CrCl > 10-29 mL/min) *Enoxaparin/Lovenox 30 mg SQ BID (WT < 150 kg, CrCl > 30 mL/min) AND/OR *Sequential Compression Device (SCD) 5 or more Highest Order ONE of the following medications: *Heparin 5000 units SQ TID (Preferred with Epidurals) *Enoxaparin/Lovenox 40 mg SQ daily (WT < 150 kg, CrCl > 30 mL/min) *Enoxaparin/Lovenox 30 mg SQ daily (WT < 150 kg, CrCl > 10-29 mL/min) *Enoxaparin/Lovenox 30 mg SQ BID (WT < 150 kg, CrCl > 30 mL/min) AND *Sequential Compression Device (SCD) Assessment and Plan - Assessment (1) Syncopal episodes Code(s): R55 - Syncope and collapse Status: Acute Plan: Syncopal episodes Confusion Slurred speech - Pt is a 27 y/o AAF with anemia, dysmenorrhea, and hx of syncopal episodes who presented to the ED at [facility] [place] [facility] on 01/21/18 evaluation syncopal episodes and possible confusion and weakness. The pt has reportedly had issues with syncopal episodes intermittently for several years. She has had outpt workup with Cardiology and Neurology in the past without a clear answer for the syncopal episodes. Per the patient she has a history of syncopal episode secondary to her periods for which is being followed by Dr. Montes and per PCP has documented episodes of presumed vasovagal syncope in the past. She recently had a laparoscopy and D&C on 12/25/17 and the patient thought that she was doing better but her first period since the procedure started on 01/18/18, and she is been having issues since that time. - On 01/19/18, the pt reported a syncopal episode that began with feeling nauseated and she went to the bathroom and while sitting on the commode she passed out and reportedly hit her forehead on the bathroom counter when she fell. There was no reported loss of bowel or bladder function when she woke up. She was not particularly confused or disoriented after this episode. - Pt was brought to the ED on 01/21/18 with reported increased confusion, slurred speech, disequilibrium and she had a reported weakness and near syncope in a store earlier that day. - Labs at admission noted Hgb 9.8/Hct 31.1. Repeat labs on 01/22 with Hgb 8.7/ hct 26.7. - Head CT (01/21/18) --> no acute intracranial abnormality demonstrated. - Over the last several months she has had some issues with memory problems and has recently been evaluated by Neurology, Dr. Idalia Gruber, outpt workup included: - Holter monitor (09/20/17) with underlying NSR, no ventricular ectopy, supraventricular or bradycardic activity - EEG (09/17/17) which was normal, no focal, diffuse or general abnormalities noted - Carotid US (09/10/17) which noted normal bilateral carotid arteries - MRI Brain w/o contrast (09/09/17) which was unremarkable. - Several years ago she had outpt workup with Echo (2014) normal EF, trace MR/ TR and TTT (2014) which was negative. - The etiology for her symptoms is unclear at this time. Her syncopal episode on 01/19/18 sounds like it may have been a vasovagal episode. Her disequilibrium, confusion and slurred speech started after taking Tylenol #3 but she has taken this before without significant issue. - Keep pt on potline monitor - Consult Cardiology - Consult Neurology due to the AMS and slurred speech that she experienced yesterday - Check MRI/MRA Brain as this was reportedly a more severe episode than she has had previously - Pt may need a prolonged event monitor as an outpt - Check orthostatics - IVF - Supportive care Pneumothorax - Chest CT (01/21/18) --> a small right-sided pneumothorax measuring up to 1 cm at the apex, but no associated displaced rib fractures or definite etiology identified. - Repeat CXR this morning - Supplemental O2 as needed Anemia - Pt with hx of anemia and dysmenorrhea and is currently on her menstrual period - Pt has not required transfusion in the past, outpt records noted Hgb is between high -11 - MOnitor H/H, pt may need transfusion during admission - Its unclear if some of her dizziness, SOB, palpitations may be related to anemia during her menstrual periods if her Hgb is getting low during her periods. - She recently had a laparoscopy and D&C 1 month ago. - CT Abdomen/Pelvis (01/21/18) --> nonspecific heterogeneity and mild enlargement of the uterus, no well-defined mass, no active bleeding seen, small follicles of the right ovary, and trace free fluid. The CT also noted a pneumothorax is partially seen in the visualized right lung base. - pt was given Zosyn in the ED but her WBC count is WNL. She has been afebrile. We will hold on continuing any antibiotics at this time. The exam, history, and the medical decision-making described in the above note were completed with the assistance of the mid-level provider. I reviewed and agree with the findings presented. I attest that I had a [id number] encounter with the patient on the same day, and personally performed and documented my assessment and findings in the medical record. (2) Confusion Code(s): R41.0 - Disorientation, unspecified Status: Acute (3) Dysmenorrhea Code(s): N94.6 - Dysmenorrhea, unspecified Status: Chronic (4) Abdominal pain Code(s): R10.9 - Unspecified abdominal pain Status: Chronic (5) Pneumothorax Code(s): J93.9 - Pneumothorax, unspecified Status: Acute (4) Abdominal pain Qualifiers: Abdominal location: lower abdomen, unspecified Qualified Code(s): R10.30 - Lower abdominal pain, unspecified (5) Pneumothorax Qualifiers: Pneumothorax type: unspecified pneumothorax Qualified Code(s): J93.9 - Pneumothorax, unspecified
[2018-01-22] MEDS ORDERED: Acetaminophen 325 MG Tablet PO PRN (10:25)
--- NOTE | 2018-01-22 10:49 | XR ---
EXAM DATE: 01/22/2018 10:42 AM EDT AGE/SEX: 27 years / Female INDICATIONS: Pneumothorax. Patient complains of dizziness, lightheaded, black outs, and shortness of breath. CLINICAL DATA: This is the patient's subsequent encounter. Patient reports that signs and symptoms h ave been present for > 1 year and indicates a pain score of 0/10. MEDICAL/SURGICAL HISTORY: None. None. COMPARISON: No prior exams available for comparison. FINDINGS: AP and lateral views of the chest demonstrate the lungs to be symmetrically aerated without evidence of mass, infiltrate or effusion. The cardiomediastinal contours are unremarkable. Osseous structure s are intact. CONCLUSION: Negative chest Electronically signed by: Prince Lagos MD 01/22/2018 10:48 AM EDT
[2018-01-22 16:20] LABS: % Iron Saturation 11.9 % (20-50)
--- NOTE | 2018-01-22 17:48 | MR ---
EXAM DATE: 01/22/2018 5:25 PM EDT AGE/SEX: 27 years / Female INDICATIONS: Altered mental status. Syncope CLINICAL DATA: This is the patient's initial encounter. Patient reports that signs and symptoms have been present for 1 day and indicates a pain score of 0/10. MEDICAL/SURGICAL HISTORY: . Anemia, Dysmenorrhea . D&C COMPARISON: No prior exams available for comparison. TECHNIQUE: Multiplanar, multisequence examination of the brain was performed without contrast. FINDINGS: MRI of the brain is performed in sagittal, axial and coronal planes. The craniocervical junction and midline structures are unremarkable. Diffusion weighted images demonstrate no abnormality. No acute c ortical infarction, acute hemorrhage, mass effect or midline shift is seen. Posterior fossa structure s are unremarkable. CONCLUSION: No evidence of acute intracranial pathology. No masses are identified. Electronically signed by: Rafa García MD 01/22/2018 5:47 PM EDT
--- NOTE | 2018-01-22 17:51 | MR ---
EXAM DATE: 01/22/2018 5:28 PM EDT AGE/SEX: 27 years / Female INDICATIONS: Altered mental status. Syncope CLINICAL DATA: This is the patient's initial encounter. Patient reports that signs and symptoms have been present for 1 day and indicates a pain score of 0/10. MEDICAL/SURGICAL HISTORY: . Anemia, Dysmenorrhea . D&C COMPARISON: No prior exams available for comparison. TECHNIQUE: 3D [id number] MRA was performed. Source images, multiplanar STS MIP, and 3D volum e MIP reconstructions were reviewed. FINDINGS: There is excellent visualization of the major intracranial arteries out to the second-order branch ve ssels. There is no evidence for aneurysm, vessel truncation or stenosis, and no evidence for vascula r malformation. CONCLUSION: Unremarkable MR angiography of the brain. Electronically signed by: Rafa García MD 01/22/2018 5:50 PM EDT
--- NOTE | 2018-01-22 20:12 | MB ---
cc: Tejas Schmidt MD, PhD Tejas Schmidt MD PhD DATE: 01/22/2018 REASON FOR CONSULTATION: Unsteadiness. History of syncope. HISTORY OF PRESENT ILLNESS: This is a very pleasant 27-year-old female who has had several episodes in the past of syncope. She states yesterday she was in [employer], was walking pushing a cart, suddenly felt a sense of significant unsteadiness and dizziness with a staggering type of gait. She fell to the ground, did not strike her head. She did not lose consciousness. She had decreased memory at the time and her symptoms eventually resolved. She had no headache. PAST MEDICAL HISTORY: She has a history of Menometorrhagia, dysmenorrhea, syncopal episodes with negative workup in the past including brain MRIs and EEGs. MEDICATIONS: She does not take any routine medications, but occasionally Zofran and Tylenol 3 during her menstrual cycle. NEUROLOGICAL EXAMINATION: Blood pressure is 118/74, pulse is 65, respirations 16, temperature 98 degrees. Higher cortical functions are normal. Cranial nerves intact. Motor exam: There are no focal deficits. Reflexes are symmetric. IMAGING STUDIES: MRI of the brain is within normal limits. MR angiogram of the brain is within normal limits. CT of the brain is normal. LABORATORY DATA: White count 4400, hemoglobin is 8.7, hematocrit 26.7%, platelet count 269,000. PT 10.8, INR 1.1, aPTT 22.2. Sodium is 144, potassium 3.5, chloride 111, CO2 of 27, BUN is 2, creatinine 0.61, GFR greater than 89, glucose is 90, calcium 7.8. IMPRESSION: Intermittent episodes of unsteadiness. She has a history as well of syncope, possible vasovagal syncope. This could have been a vasovagal type of episode. A neurologic migraine would be in the differential; however, she does not have a history of migraine headaches. Rule out focal seizure. No sign of stroke on the MRI. RECOMMENDATION: I would like to get an electroencephalogram to rule out focal seizure. Also, check labs to rule out hypercoagulable state checking lupus anticoagulant, anticardiolipin antibodies, protein S, protein C, Leiden Factor V gene mutation. Tejas Schmidt MD, PhD DAJA/ , 07:56 PM , 08:10 PM
--- NOTE | 2018-01-23 07:58 | P.CONCA ---
<DavidBrandon - Last Filed: 01/23/18 07:46> History of Present Illness Primary Care Provider: Vince Sanches Family Provider: Vince Sanches Chief Complaint: Syncope, AMS History of Present Illness: 27-year-old female with a past medical history of dysmenorrhea and anemia who presented for recurrent syncopal episodes. Patient states for several years she has been having episodes of dizziness, flushing, and loss of consciousness. Previously seen by cardiology in [place] in 2014, reportedly had unremarkable echocardiogram at that time. She also has a recent Holter monitor from September of this year with NSR. She does report that sometimes she has associated palpitations and chest pressure prior to the syncopal episodes. She is also been seeing neurology as outpatient for these episodes and [facility] for anemia/ dysmenorrhea. EKG on this admission shows NSR. Labs significant for normocytic anemia and iron deficiency consistent with blood loss. Also hypokalemia, now corrected. Review of Systems All other systems reviewed negative except as stated in HPI PMFSH - History History Provided By: Patient, Family Member (mother at bedside) - Medical History Medical History: Medical History (Last Updated 01/22/18 @ 10:18 by MENDEZ Knight) Syncopal episodes (Acute) Anemia - Surgical History Surgical History: Surgical History (Last Updated 01/22/18 @ 10:18 by MENDEZ Knight) History of dilatation and curettage History of laparoscopy - Family History Family History: Family History (Last Updated 01/22/18 @ 10:19 by MENDEZ Knight) Mother Syncopal episodes - Tobacco History Second Hand Smoke Exposure: No Tobacco Use In Past 30 Days: No Smoking Status: Never smoker - Alcohol History How Often Do You Have a Drink Containing Alcohol: Monthly or less - Substance Use History Substance History: No History of Abuse - Travel History Recent Travel in the [place] Within the Last 8 Weeks: No Recent Travel Out of the Country Within the Last 8 Weeks: No - Immunization History Tetanus Immunization: <5 Years Hx Influenza Vaccine This Season: Yes Medications and Allergies Allergies Allergy/AdvReac Type Severity Reaction Status Date / Time lactose Allergy Severe VOMITING Verified 12/25/17 06:42 No Known Drug Allergies Allergy Unknown Verified 12/25/17 06:42 Home Medications Medication Instructions Recorded Confirmed Type No Known Home Medications 01/21/18 01/21/18 History Active Medications: Active Medications Acetaminophen (Tylenol) 650 mg PO Q4H PRN PRN Reason: fever or headache Last Admin: 01/22/18 18:34 Dose: 650 mg Potassium Chloride/Sodium Chloride (Ns + Kcl 20 Meq Inj) 1,000 mls @ 84 mls/hr IV.CONT .[id number] [facility] Last Admin: 01/22/18 20:46 Dose: 84 mls/hr Ondansetron HCl (Zofran Odt) 4 mg SL Q4H PRN PRN Reason: Nausea And Vomiting Sodium Chloride (Ns Flush) 2 ml IV.FLUSH PRN PRN PRN Reason: FLUSH AFTER USING IV ACCESS Sodium Chloride (Ns Flush) 2 ml IV.FLUSH PRN PRN PRN Reason: FLUSH AFTER USING IV ACCESS Tramadol HCl (Ultram) 50 mg PO Q6H PRN PRN Reason: Acute Pain Last Admin: 01/22/18 22:51 Dose: 50 mg Exam Vital signs: Vital Signs 01/22/18 10:03 01/22/18 14:14 01/22/18 16:00 Temperature 98.8 F Pulse Rate 68 76 65 Respiratory Rate 18 18 16 Blood Pressure 109/62 106/61 125/69 Pulse Oximetry 98 100 01/22/18 18:17 01/22/18 18:18 01/22/18 20:00 Temperature 98.4 F Pulse Rate 65 Respiratory Rate 16 Blood Pressure 118/74 109/70 101/59 L Pulse Oximetry 99 01/23/18 00:00 01/23/18 03:36 Temperature 98.4 F 98.3 F Pulse Rate 62 56 L Respiratory Rate 16 16 Blood Pressure 102/57 L 91/50 L Pulse Oximetry 99 99 Intake & Output 01/22/18 01/23/18 01/23/18 18:59 06:59 18:59 Intake Total 1500 / 1500 975 / 975 Balance 1500 / 1500 975 / 975 Intake: IV 1000 / 1000 975 / 975 NS + KCl 20 mEq Inj 1,000 ML @ 1000 / 1000 975 / 975 84 mls/hr IV.CONT .[id number] [facility] Rx#:[id number] Oral 500 / 500 Other: # Voids 2 Date of Last Bowel Movement 01/22/18 Narrative: GENERAL: Well-developed well-nourished. In no acute distress. NECK: No carotid bruits. No JVD. CARDIOVASCULAR: Regular rate and rhythm. No murmur appreciated. RESPIRATORY: No accessory muscle use. Clear to auscultation. Breath sounds equal bilaterally. MUSCULOSKELETAL: No clubbing or cyanosis. No edema. NEUROLOGICAL: Awake and alert. Normal speech. Results 01/22/18 07:09 01/22/18 07:09 Comprehensive Metabolic Panel 01/22/18 Range/Units 07:09 Sodium 144 (136-145) meq/L Potassium 3.5 (3.5-5.1) meq/L Chloride 111 H (98-107) meq/L Carbon Dioxide 26.9 (21.0-32.0) meq/L BUN 2 L (7-18) mg/dL Creatinine 0.61 (0.50-1.00) mg/dL Calcium 7.8 L D (8.5-10.1) mg/dL Intake and Output 01/22/18 01/23/18 01/23/18 22:59 06:59 14:59 Intake Total 1475 / 1475 Balance 1475 / 1475 Intake: IV 975 / 975 NS + KCl 20 mEq Inj 1,000 ML @ 975 / 975 84 mls/hr IV.CONT .[id number] [facility] Rx#:[id number] Oral 500 / 500 Other: # Voids 2 Date of Last Bowel Movement 01/22/18 Assessment and Plan - Plan 27-year-old female with a past medical history of dysmenorrhea and anemia who presented for recurrent syncopal episodes Recurrent syncope: Unclear etiology, possibly arrhythmogenic. Will coordinate 30 day event monitor as outpatient, and if that is negative could consider loop recorder implantation. Discussed Condition With: Patient with mother at bedside, Dr. Edge <Cali Edge - Last Filed: 01/23/18 10:15> History of Present Illness Primary Care Provider: Vince Sanches Family Provider: Vince Sanches [facility] - Medical History Medical History: Medical History (Last Updated 01/22/18 @ 10:18 by MENDEZ Knight) Syncopal episodes (Acute) Anemia - Surgical History Surgical History: Surgical History (Last Updated 01/22/18 @ 10:18 by MENDEZ Knight) History of dilatation and curettage History of laparoscopy - Family History Family History: Family History (Last Updated 01/22/18 @ 10:19 by MENDEZ Knight) Mother Syncopal episodes Medications and Allergies Active Medications: Active Medications Acetaminophen (Tylenol) 650 mg PO Q4H PRN PRN Reason: fever or headache Last Admin: 01/22/18 18:34 Dose: 650 mg Docusate Sodium (Colace) 100 mg PO BID PRN PRN Reason: CONSTIPATION Ondansetron HCl (Zofran Odt) 4 mg SL Q4H PRN PRN Reason: Nausea And Vomiting Last Admin: 01/23/18 08:56 Dose: 4 mg Sodium Chloride (Ns Flush) 2 ml IV.FLUSH PRN PRN PRN Reason: FLUSH AFTER USING IV ACCESS Sodium Chloride (Ns Flush) 2 ml IV.FLUSH PRN PRN PRN Reason: FLUSH AFTER USING IV ACCESS Tramadol HCl (Ultram) 50 mg PO Q6H PRN PRN Reason: Acute Pain Last Admin: 01/23/18 08:55 Dose: 50 mg Exam Vital signs: Vital Signs 01/22/18 14:14 01/22/18 16:00 01/22/18 18:17 Temperature 98.8 F Pulse Rate 76 65 Respiratory Rate 18 16 Blood Pressure 106/61 125/69 118/74 Pulse Oximetry 98 100 01/22/18 18:18 01/22/18 20:00 01/23/18 00:00 Temperature 98.4 F 98.4 F Pulse Rate 65 62 Respiratory Rate 16 16 Blood Pressure 109/70 101/59 L 102/57 L Pulse Oximetry 99 99 01/23/18 03:36 01/23/18 08:00 Temperature 98.3 F 97.6 F Pulse Rate 56 L 63 Respiratory Rate 16 16 Blood Pressure 91/50 L 113/65 Pulse Oximetry 99 98 Intake & Output 01/22/18 01/23/18 01/23/18 18:59 06:59 18:59 Intake Total 1500 / 1500 975 / 975 1000 / 1000 Balance 1500 / 1500 975 / 975 1000 / 1000 Intake: IV 1000 / 1000 975 / 975 1000 / 1000 NS + KCl 20 mEq Inj 1,000 ML @ 1000 / 1000 975 / 975 1000 / 1000 84 mls/hr IV.CONT .[id number] [facility] Rx#:[id number] Oral 500 / 500 Other: # Voids 2 Date of Last Bowel Movement 01/22/18 Results 01/22/18 07:09 01/22/18 07:09 Intake and Output 01/22/18 01/23/18 01/23/18 22:59 06:59 14:59 Intake Total 1475 / 1475 1000 / 1000 Balance 1475 / 1475 1000 / 1000 Intake: IV 975 / 975 1000 / 1000 NS + KCl 20 mEq Inj 1,000 ML @ 975 / 975 1000 / 1000 84 mls/hr IV.CONT .[id number] [facility] Rx#:[id number] Oral 500 / 500 Other: # Voids 2 Date of Last Bowel Movement 01/22/18 Assessment and Plan - Attending Attestation syncope unclear etiology. no triggers + prodrome prior echo - structurally normal heart EKG unremarkable plan for 30 day event monitor my office will coordinate no driving DC home FU after event monitor
--- NOTE | 2018-01-23 08:56 | P.PNIM ---
Subjective Interval history: Pt with some nausea this morning She has been able to walk to the bathroom without difficulty Some abdominal cramping. She was able to eat and drink without difficulty yesterday. Physical Exam Vital signs: Vital Signs 01/22/18 10:03 01/22/18 14:14 01/22/18 16:00 Temperature 98.8 F Pulse Rate 68 76 65 Respiratory Rate 18 18 16 Blood Pressure 109/62 106/61 125/69 Pulse Oximetry 98 100 01/22/18 18:17 01/22/18 18:18 01/22/18 20:00 Temperature 98.4 F Pulse Rate 65 Respiratory Rate 16 Blood Pressure 118/74 109/70 101/59 L Pulse Oximetry 99 01/23/18 00:00 01/23/18 03:36 01/23/18 08:00 Temperature 98.4 F 98.3 F 97.6 F Pulse Rate 62 56 L 63 Respiratory Rate 16 16 16 Blood Pressure 102/57 L 91/50 L 113/65 Pulse Oximetry 99 99 98 Intake & Output 01/22/18 01/23/18 01/23/18 18:59 06:59 18:59 Intake Total 1500 / 1500 975 / 975 Balance 1500 / 1500 975 / 975 Intake: IV 1000 / 1000 975 / 975 NS + KCl 20 mEq Inj 1,000 ML @ 1000 / 1000 975 / 975 84 mls/hr IV.CONT .[id number] [facility] Rx#:[id number] Oral 500 / 500 Other: # Voids 2 Date of Last Bowel Movement 01/22/18 Narrative: GENERAL: NAD, AAOx3 SKIN: Warm and dry. CARDIO: Regular rate and rhythm without murmurs, gallops, or rubs. RESP: Breath sounds equal bilaterally. No accessory muscle use. ABD: +BS, soft, non-tender, nondistended. EXT: No edema. Results - Labs CBC & Chem 7: 01/22/18 07:09 01/22/18 07:09 Laboratory Results - last 24 hr 01/22/18 01/22/18 01/23/18 07:09 17:27 07:48 POC Glucose 116 H 98 Iron 41 L TIBC 346 % Saturation 11.9 L Ferritin 11 Microbiology 01/21/18 20:30 Blood - Peripheral Aerobic Blood Culture - Preliminary No growth in 1 day 01/21/18 20:30 Blood - Peripheral Anaerobic Blood Culture - Preliminary No growth in 1 day 01/21/18 20:48 Blood - Peripheral Aerobic Blood Culture - Preliminary No growth in 1 day 01/21/18 20:48 Blood - Peripheral Anaerobic Blood Culture - Preliminary No growth in 1 day - Imaging Impressions Head CT 01/21/18 19:42 CONCLUSION: 1. No acute intracranial abnormality demonstrated. Abdomen/Pelvis CT 01/21/18 22:00 CONCLUSION: 1. Nonspecific heterogeneity and mild enlargement of the uterus. No well- defined mass. No active bleeding seen. 2. Small follicles of the right ovary. 3. Trace free fluid. Nothing organized or drainable seen. 4. A pneumothorax is partially seen in the visualized right lung base. Etiology is uncertain. Chest CT 01/21/18 22:43 CONCLUSION: 1. Small right-sided pneumothorax measuring up to 1 cm at the apex. 2. No associated displaced rib fractures or definite etiology identified. Head MRI 01/22/18 00:00 CONCLUSION: No evidence of acute intracranial pathology. No masses are identified. Head MRA 01/22/18 00:00 CONCLUSION: Unremarkable MR angiography of the brain. Chest X-Ray 01/22/18 08:00 CONCLUSION: Negative chest Assessment and Plan - Assessment (1) Syncopal episodes Code(s): R55 - Syncope and collapse Status: Acute Plan: Syncopal episodes Confusion Slurred speech - Pt is a 27 y/o AAF with anemia, dysmenorrhea, and hx of syncopal episodes who [place] [facility] [place] syncopal episodes and possible confusion and weakness. The pt has reportedly had issues with syncopal episodes intermittently for several years. She has had outpt workup with Cardiology and Neurology in the past without a clear answer for the syncopal episodes. Per the patient she has a history of syncopal episode secondary to her periods for which is being followed by Dr. Montes and per PCP has documented episodes of presumed vasovagal syncope in the past. She recently had a laparoscopy and D&C on 12/25/17 and the patient thought that she was doing better but her first period since the procedure started on 01/18/18, and she is been having issues since that time. - On 01/19/18, the pt reported a syncopal episode that began with feeling nauseated and she went to the bathroom and while sitting on the commode she passed out and reportedly hit her forehead on the bathroom counter when she fell. There was no reported loss of bowel or bladder function when she woke up. She was not particularly confused or disoriented after this episode. - Pt was brought to the ED on 01/21/18 with reported increased confusion, slurred speech, disequilibrium and she had a reported weakness and near syncope in a store earlier that day. - Labs at admission noted Hgb 9.8/Hct 31.1. Repeat labs on 01/22 with Hgb 8.7/ hct 26.7. - Head CT (01/21/18) --> no acute intracranial abnormality demonstrated. - Over the last several months she has had some issues with memory problems and has recently been evaluated by Neurology, Dr. Idalia Gruber, outpt workup included: - Holter monitor (09/20/17) with underlying NSR, no ventricular ectopy, supraventricular or bradycardic activity - EEG (09/17/17) which was normal, no focal, diffuse or general abnormalities noted - Carotid US (09/10/17) which noted normal bilateral carotid arteries - MRI Brain w/o contrast (09/09/17) which was unremarkable. - Several years ago she had outpt workup with Echo (2014) normal EF, trace MR/ TR and TTT (2014) which was negative. - The etiology for her symptoms is unclear at this time. Her syncopal episode on 01/19/18 sounds like it may have been a vasovagal episode. Her disequilibrium, confusion and slurred speech started after taking Tylenol #3 but she has taken this before without significant issue. - Keep pt on ekg monitor - Appreciate consult from Cardiology, pt planned for prolonged outpt event monitor +/- loop recorder - Appreciate consult from Neurology - Pt planned for EEG today - Hypercoagulable panel is ordered - Head MRI 01/22/18 - No evidence of acute intracranial pathology. No masses are identified. - Head MRA 01/22/18 - Unremarkable MR angiography of the brain. - Supportive care Pneumothorax - Chest CT (01/21/18) --> a small right-sided pneumothorax measuring up to 1 cm at the apex, but no associated displaced rib fractures or definite etiology identified. - CXR (01/22/18) --> Negative chest - Supplemental O2 as needed Anemia - Pt with hx of anemia and dysmenorrhea and is currently on her menstrual period - Pt has not required transfusion in the past, outpt records noted Hgb is between high 9-11 - Monitor H/H, pt may need transfusion during admission - Its unclear if some of her dizziness, SOB, palpitations may be related to anemia during her menstrual periods if her Hgb is getting low during her periods. - She recently had a laparoscopy and D&C 1 month ago. - CT Abdomen/Pelvis (01/21/18) --> nonspecific heterogeneity and mild enlargement of the uterus, no well-defined mass, no active bleeding seen, small follicles of the right ovary, and trace free fluid. The CT also noted a pneumothorax is partially seen in the visualized right lung base. - Pt was given Zosyn in the ED but her WBC count is WNL. She has been afebrile. We will hold on continuing any antibiotics at this time. (2) Confusion Code(s): R41.0 - Disorientation, unspecified Status: Acute (3) Dysmenorrhea Code(s): N94.6 - Dysmenorrhea, unspecified Status: Chronic (4) Abdominal pain Code(s): R10.9 - Unspecified abdominal pain Status: Chronic (5) Pneumothorax Code(s): J93.9 - Pneumothorax, unspecified Status: Acute (4) Abdominal pain Qualifiers: Abdominal location: lower abdomen, unspecified Qualified Code(s): R10.30 - Lower abdominal pain, unspecified (5) Pneumothorax Qualifiers: Pneumothorax type: unspecified pneumothorax Qualified Code(s): J93.9 - Pneumothorax, unspecified
[2018-01-23] MEDS ORDERED: Docusate Sodium 100 MG Capsule PO PRN (09:29)
--- NOTE | 2018-01-23 12:22 | ECHRPT ---
Indication: cva/tia CONCLUSIONS The left ventricular systolic function is normal with an estimated ejection fraction in the range of 60-65%. Normal left ventricular size. Wall thickness is normal. No regional wall motion abnormalities are present. Trace mitral valve regurgitation. There is trace tricuspid valve regurgitation. The estimated pulmonary arterial pressure is 31 mmHg. The pulmonary valve is not well visualized. BP: / HR: Rhythm: Sinus Technical Quality:Good FINDINGS LEFT VENTRICLE The left ventricular systolic function is normal with an estimated ejection fraction in the range of 60-65%. Normal left ventricular size. Wall thickness is normal. No regional wall motion abnormalities are present. RIGHT VENTRICLE Normal right ventricular size and systolic function. LEFT ATRIUM The left atrial size is normal. RIGHT ATRIUM The right atrial size is normal. ATRIAL SEPTUM Normal atrial septal thickness without atrial level shunting by limited color doppler interrogation. AORTA The aortic root and proximal ascending aorta are normal in size on limited imaging. MITRAL VALVE Structurally normal mitral valve. Trace mitral valve regurgitation. AORTIC VALVE Trileaflet aortic valve. No aortic valve stenosis or regurgitation. TRICUSPID VALVE Structurally normal tricuspid valve. There is trace tricuspid valve regurgitation. The estimated pulmonary arterial pressure is 31 mmHg. PULMONARY VALVE The pulmonary valve is not well visualized. VESSELS The inferior vena cava is normal in size. PERICARDIUM No pericardial effusion. Cali Edge MD, FACC (Electronically Signed) Final Date:23 January 2018 12:20
[2018-01-23 13:27] LABS: Baso % (Auto) 0.4 % (0.0-2.0); Eos # (Auto) 0.1 th/mm3 (0.0-0.4); Eos % (Auto) 2.6 % (0.0-4.0); Hematocrit 26.7 % (35.0-46.0); Hemoglobin 8.6 gm/dL (11.6-15.3); Lymph # (Auto) 1.1 th/mm3 (1.0-4.8); Lymph % (Auto) 28.8 % (9.0-44.0); Mean Corpuscular Hemoglobin 27.1 pg (27.0-34.0); Mean Corpuscular Volume 84.7 fL (80.0-100.0); Mean Platelet Volume 7.3 fL (7.0-11.0); Mono # (Auto) 0.3 th/mm3 (0.0-0.9); Mono % (Auto) 7.8 % (0.0-8.0); Neut # (Auto) 2.3 th/mm3 (1.8-7.7); Neut % (Auto) 60.4 % (16.0-70.0); Platelet Count 243 th/mm3 (150-450); Red Blood Count 3.15 mil/mm3 (4.00-5.30); White Blood Count 3.8 th/mm3 (4.0-11.0)
[2018-01-23 13:50] LABS: Albumin 3.2 g/dL (3.4-5.0); Anion Gap 7 meq/L (5-15); Aspartate Aminotransferase 39 U/L (15-37); Blood Urea Nitrogen 4 mg/dL (7-18); Calcium 8.5 mg/dL (8.5-10.1); Carbon Dioxide 27.9 meq/L (21.0-32.0); Chloride 108 meq/L (98-107); Glomerular Filtration Rate Greater Than 89 mL/min (>89); Glucose,Random 106 mg/dL (74-106); Sodium 143 meq/L (136-145)
[2018-01-23 13:59] LABS: Alanine Aminotransferase 37 U/L (10-53); Alkaline Phosphatase 49 U/L (45-117); Total Protein 6.2 g/dL (6.4-8.2)
[2018-01-23] MEDS ORDERED: Iron Sucrose Inj 200 MG in Sodium Chlor 0.9% Inj 100 ML IV.SIG SCH (14:00)
--- NOTE | 2018-01-23 14:34 | MG ---
cc: Suzanna Harkins MD EEG NUMBER: [id number] REFERRING PROVIDER: Dr. Schmidt. INDICATION: In H91, awake, drowsy with hyperventilation, good effort with photic stimulation. MRI negative. HISTORY: This is a 27-year-old woman admitted with a head injury, possible confusion, weakness, syncope at a store. History of anemia, transfusions, alcohol use. On Tylenol, tramadol and Zofran DESCRIPTION OF RECORD: The patient has an overall alpha rhythm of 10.5-11 Hz, 20-40 microvolts, well organized symmetrical background. EKG looks predominantly sinus. Hyperventilation is performed at the beginning portion of this recording. Remains of adequate amplitude. No attenuation. Some background artifact, but no epileptiform features. Photic stimulation is then performed with a posterior driving response. IMPRESSION: Normal electroencephalogram. No gross epileptiform features were observed. Clinical correlation. Suzanna Harkins MD DF/ALEYDA , 02:18 PM , 02:32 PM
--- NOTE | 2018-01-23 15:22 | MB ---
cc: Dayne Oscar MD DATE: 01/23/2018 REASON FOR CONSULTATION: Right pneumothorax. HISTORY OF PRESENT ILLNESS: The patient is a 27-year-old female who comes at the emergency room after a syncopal episode. She has been evaluated by both Cardiology and Neurology. The patient's CT scan of the chest revealed a small apical right pneumothorax. I am asked to see the patient for same. She denies shortness of breath. No fever, no chills, no cough, no expectoration, no hemoptysis. PAST MEDICAL HISTORY: Anemia, menometrorrhagia and dysmenorrhea, previous syncopal episode with negative workup in the past including EEGs and MRIs as well previous cardiac evaluation. CURRENT MEDICATIONS: Include Tylenol for menstrual pain and Zofran p.r.n. FAMILY HISTORY: Noncontributory. SOCIAL HISTORY: Does not smoke, does not drink. No history of previous lung disease. FAMILY HISTORY: Noncontributory. REVIEW OF SYSTEMS: A 12-point review of systems as per HPI and past history, otherwise negative. PHYSICAL EXAMINATION: GENERAL: The patient is alert. VITAL SIGNS: Her temperature is 98, pulse 64, respirations 18, blood pressure 120/70, oxygen saturation between 98% and 100% on room air. HEENT: Unremarkable. Eyes without icterus. NECK: Without adenopathy or thyroid enlargement. Trachea is central. CHEST: No dullness to percussion. Clear to auscultation. CARDIOVASCULAR: PMI distant. S1, S2 audible. No murmur. No rub. ABDOMEN: Lax, audible bowel sounds. PSYCHIATRIC: No clubbing, cyanosis or edema. LABORATORY DATA: White count 4.4 thousand, hemoglobin 8.7, hematocrit 26, platelets 269. INR 1.1. Sodium 144, potassium 3.5, BUN 2, creatinine 0.6. IMAGING STUDIES: CT scan of the chest with a small right apical pneumothorax. IMPRESSION: 1. Small right-sided pneumothorax, etiology unclear. 2. Syncope. 3. Chronic anemia. PLAN: The patient is stable at this point. At this time, no pulmonary symptomatology. No respiratory distress. The pneumothorax may have been related to her fall or has occurred spontaneously; however, it is small and is not clinically significant. At this point, we will repeat the chest x-ray to assure the absence of underlying pneumothorax. If this is persistent or enlarged, the hospitalization will be needed. If the chest x-ray is normal, then followup at that outpatient would be appropriate. I do thank you for asking me to partake in Mrs. Dunham's care. MD JACLYN Luna/ALEYDA , 03:01 PM , 03:21 PM
--- NOTE | 2018-01-23 17:27 | XR ---
EXAM DATE: 01/23/2018 3:19 PM EDT AGE/SEX: 27 years / Female INDICATIONS: Pneumothorax. CLINICAL DATA: This is the patient's subsequent encounter. Patient reports that signs and symptoms h ave been present for 2 days and indicates a pain score of 0/10. MEDICAL/SURGICAL HISTORY: None. None. COMPARISON: [facility] [place], CHEST 2V AP&LAT, 01/22/2018. . FINDINGS: A single AP view of the chest demonstrates the lungs to be symmetrically aerated without evidence of mass, infiltrate or effusion. The cardiomediastinal contours are unremarkable. Osseous structures a re intact. CONCLUSION: No acute cardiopulmonary disease. Electronically signed by: Rafa García MD 01/23/2018 5:26 PM EDT
== END 2018-01-23 19:03 | disposition home or self-care (01) ==
LOC: NEPHCDU 18:36 → NEDA 18:36 → NEPE 18:36 → NEPHCDU 01-22 14:18
PROVIDERS: ADMIT Hospitalist; ATTEND Hospitalist